=== PATIENT | female | born 1965 | race Caucasian/White ===

== ENCOUNTER 2018-09-09 12:23 | Emergency (ER) | payer MEDICARE, MEDICAID ==
[2018-09-09 13:46] LABS: % BASOPHILS 0.9 % (0.0-2.0); % EOSINOPHILS 0.8 % (0.0-5.0); % LYMPHOCYTES 26.9 % (20.0-50.0); % MONOCYTES 8.3 % (2.0-10.0); % NEUTROPHILS 63.1 % (40.0-80.0); BASOPHILE ABSOLUTE 0.1 Th/cumm (0-0.2); EOSINOPHILE ABSOLUTE 0.1 Th/cmm (0.1-0.4); HEMATOCRIT 42.4 % (41.0-60); HEMOGLOBIN 13.6 gm/dL (12-16); LYMPHOCYTE ABSOLUTE 2.4 Th/cmm (1.5-3.0); MEAN CELL VOLUME 91.3 fl (81-100); MEAN CORPUSCULAR HEMOGLOBIN 29.4 pg (27.0-31.0); MEAN CORPUSCULAR HGB CONC 32.2 pg (28.0-36.0); MONOCYTE ABSOLUTE 0.7 Th/cmm (0.3-1.0); NEUTROPHILE ABSOLUTE 5.7 Th/cmm (1.8-8.0); PLATELET COUNT 322 Th/cmm (150-400); RED BLOOD COUNT 4.64 Mil/cmm (3.80-5.10); RED CELL DISTRIBUTION WIDTH 12.6 % (11.5-20.0)
[2018-09-09 14:04] LABS: ALB/GLOB RATIO 1.4 (1.0-1.8); ALBUMIN 4.3 gm/dL (3.7-5.3); ALKALINE PHOSPHATASE 72 U/L (34-104); BILIRUBIN,TOTAL 0.2 mg/dL (0.3-1.0); BUN - UREA NITROGEN 12 mg/dL (7-25); CALCIUM SERUM 9.6 mg/dL (8.6-10.3); CARBON DIOXIDE 30.7 mEq/L (21.0-31.0); CHLORIDE 99 mEq/L (98-107); CREATININE - SERUM 0.8 mg/dL (0.6-1.2); GFR AFRICAN-AMERICAN > 60.0 ml/min (>90); GFR NON AFRICAN-AMERICAN > 60.0 ml/min; GLUCOSE 92 mg/dL (70-105); PHOSPHOROUS 3.3 mg/dL (2.5-5.0); POTASSIUM SERUM 3.7 mEq/L (3.5-5.1); SGOT 14 U/L (13-39); SGPT/ALT 14 U/L (7-52); SODIUM SERUM 140 mEq/L (136-145); TOTAL PROTEIN,SERUM 7.3 gm/dL (6.0-8.3)
[2018-09-09] MEDS ORDERED: Magnesium Sulfate 1 gm/2 mL 2mL Vial IV ONE (14:06)
--- NOTE | 2018-09-09 14:42 | ED Physician Chart ---
ED Chief Complaint/HPI - Patient Information Date Seen:: 09/09/18 Time Seen:: 12:43 Chief Complaint:: abnormal EKG History of Present Illness:: abnormal EKG performed at the SNF that she came from. unsure why an EKG was performed since the patient is nonverbal and can not communicate. Original EKG from the SNF was performed on 09/05/2018 Allergies:: Allergies Allergy/AdvReac Type Severity Reaction Status Date / Time No Known Allergies Allergy Verified 09/09/18 12:43 Vitals:: Vital Signs - 8 hr 09/09/18 12:43 Temp 98.9 F HR 64 RR 16 O2 Sat % 99 Historian:: Other (caregiver) Review:: Nurse's Note Reviewed, Old Chart Reviewed, Transfer documents Reviewed ED Review of Systems - Review of Systems General/Constitutional: No fever, No chills, No weight loss, No weakness, No diaphoresis, No edema, No loss of appetite Skin: No skin lesions, No rash, No bruising Head: No headache, No light-headedness Eyes: No loss of vision, No pain, No diplopia ENT: No earache, No nasal drainage, No sore throat, No tinnitus Neck: No neck pain, No swelling, No thyromegaly, No stiffness, No mass noted Cardio Vascular: No chest pain, No palpitations, No PND, No orthopnea, No edema Pulmonary: No SOB, No cough, No sputum, No wheezing GI: No nausea, No vomiting, No diarrhea, No pain, No melena, No hematochezia, No constipation, No hematemesis G/U: No dysuria, No frequency, No hematuria Musculoskeletal: No bone or joint pain, No back pain, No muscle pain Endocrine: No polyuria, No polydipsia Psychiatric: Prior psych history Hematopoietic: No bruising, No lymphadenopathy Allergic/Immuno: No urticaria, No angioedema Neurological: No syncope, No focal symptoms, No weakness, No paresthesia, No headache, No seizure, No dizziness, No confusion, No vertigo ED Past Medical History - Past Medical History Obtainable: No Past Medical History: Other (autistic; severe intellectual disabilities) Family Medical History - Family Member Mother History Unknown: Yes ED Physical Exam - Physical Examination General/Constitutional: Awake, Well-developed, well-nourished, Non-toxic appearing Other Gen/Cons comments:: Nonverbal. Trying to bite her own arm (her normal behavior according to caregiver). Head: Atraumatic Eyes: Lids, conjuctiva normal, PERRL, EOMI Skin: Nl inspection, No rash, No skin lesions, No ecchymosis, Well hydrated ENMT: External ears, nose nl Neck: Nontender Respiratory: Nl effort/Exclusion, Clear to Auscultation Cardio Vascular: RRR, No murmur, gallop, rubs, NL S1 S2 Extremities: No tenderness or effusion, Full ROM, No edema Misc: Normal back ED Labs/Radiology/EKG Results - Lab Results Results: Laboratory Tests 09/09/18 09/09/18 09/09/18 13:35 13:35 13:35 WBC 9.0 RBC 4.64 Hgb 13.6 Hct 42.4 MCV 91.3 MCH 29.4 MCHC Differential 32.2 RDW 12.6 Plt Count 322 MPV 8.0 Neutrophils % 63.1 Lymphocytes % 26.9 Monocytes % 8.3 Eosinophils % 0.8 Basophils % 0.9 Sodium 140 Potassium 3.7 Chloride 99 Carbon Dioxide 30.7 Anion Gap 14.0 BUN 12 Creatinine 0.8 Est GFR ( Amer) > 60.0 Est GFR (Non-Af Amer) > 60.0 BUN/Creatinine Ratio 15.0 Glucose 92 Calcium 9.6 Phosphorus 3.3 Magnesium 2.0 Total Bilirubin 0.2 L AST 14 ALT 14 Alkaline Phosphatase 72 Troponin I 0.01 Total Protein 7.3 Albumin 4.3 Globulin 3.0 Albumin/Globulin Ratio 1.4 ED Assessment - Assessment General Assessment: Original EKG from the SNF was performed on 09/05/2018: original EKG was read out by the computer as accelerated junctional rhythm with occasional premature ventricular complexes. abnormal EKG. This EKG was faxed to Dr. Kenneth Daniel on . Original EKG done here showed alot of tremor and movement artifact. This EKG was done at 12:51:37 p.m. It was read out as atrial fibrillation, borderline left axis deviation, ST elevation, consider inferior injury. For this reason, lab work was drawn. Lab work was also drawn because the patient was trying to bite her arm and I was considering the possible need for psych need. According to caregiver of the facility, she does this all the time. EKG from :30:07 p.m. reveals sinus tachycardia with no ischemic changes. All lab work is normal. tries to bite herself on her arm. sedation had to be given to her to minimize the tremor so that I could adequately read the EKG. ED Septic Shock - . Is Septic Shock (SBP<90, OR Lactate>4 mmol\L) present?: No - <6hrs of presentation: Vital Signs: Vital Signs - 8 hr 09/09/18 12:43 Temp 98.9 F HR 64 RR 16 O2 Sat % 99 ED Reassessment (Disposition) - Reassessment Reassessment Condition:: Improved - Diagnosis Diagnosis:: Normal EKG Normal lab work Severe intellectual disabilities Autistic Disorder - Aftercare/Follow up Instructions Aftercare/Follow-Up Instructions:: Refer to Discharge Instructions Notes:: follow up with physician at the facility as needed. - Patient Disposition Discharge/Transfer:: Home Condition at Disposition:: Stable, Improved
== END 2018-09-09 14:54 | disposition home or self-care (01) ==
LOC: ER 12:23
DX: Z00.00 Encounter for general adult medical examination without abnormal findings (principal); R94.31 Abnormal electrocardiogram [ECG] [EKG]; R00.0 Tachycardia, unspecified
CPT/HCPCS: 99285; 96372 ×2; 93005; 84484; 36415; 85025; 83735; 84100; 80053; J2060; J2930; J1200; J3475